=== PATIENT | female | born 1990 ===

== ENCOUNTER 2016-07-12 21:25 | Observation (INO) | payer OTHER ==
[2016-07-12 21:31] VITALS: BP 151/90; PULSE 127; RESP 18; TEMP 97.9; O2SAT 98
[2016-07-12] MEDS ORDERED: Sodium Chloride 0.9% 1,000 ML IV STA (22:08)
--- NOTE | 2016-07-12 22:40 | ED PDOC ---
HPI: Abdomen Time Seen by Provider: 07/12/16 21:30 Chief Complaint (Nursing): Abdominal Pain Chief Complaint (Provider): Abdominal Pain History Per: Patient History/Exam Limitations: no limitations Onset/Duration Of Symptoms: Sudden Onset Severity: Moderate Location Of Pain/Discomfort: RUQ, Epigastric, LUQ Quality Of Discomfort: "Pain" Associated Symptoms: Nausea, Vomiting, Diarrhea Additional Complaint(s): Marifer Esteban is a 25 y/o female presenting to the ER on 07/12/2016 with complaints of abdominal pain in setting of heavy consumption of alcohol prior to arrival. Patient reports she "had a lot to drink" tonight, stating drinks contained multiple mixed alcohols. Reports symptoms including nausea, vomiting, diarrhea, as well as epigastric discomfort. Parents are currently at bedside with patient. Past Medical History Reviewed: Historical Data, Nursing Documentation, Vital Signs Vital Signs: Last Vital Signs Temp 97.9 F 07/12/16 21:26 Pulse 127 H 07/12/16 21:26 Resp 18 07/12/16 21:26 BP 151/90 H 07/12/16 21:26 Pulse Ox 98 07/13/16 05:09 - Medical History PMH: Migraine - Surgical History Surgical History: No Surg Hx - Family History Family History: States: Unknown Family Hx - Social History Current smoker - smoking cessation education provided: No Alcohol: Occasional Drugs: Denies - Home Medications Home Medications: Ambulatory Orders Medication Instructions Recorded Ibuprofen [Motrin Tab] 600 mg PO Q6 #30 tab 02/11/16 - Allergies Allergies/Adverse Reactions: Allergies Allergy/AdvReac Type Severity Reaction Status Date / Time apple Allergy SWELLING Verified 02/10/16 22:17 Review of Systems ROS Statement: Except As Marked, All Systems Reviewed And Found Negative Constitutional: Negative for: Fever Gastrointestinal: Positive for: Nausea, Vomiting, Abdominal Pain, Diarrhea Physical Exam - Reviewed Nursing Documentation Reviewed: Yes Vital Signs Reviewed: Yes - Physical Exam Appears: Positive for: In Acute Distress (pt is writhing in pain). Negative for : Non-toxic (pt's breath smells like alcohol ) Head Exam: Positive for: ATRAUMATIC, NORMOCEPHALIC Skin: Positive for: Normal Color, Warm, Dry Eye Exam: Positive for: Normal appearance, EOMI, PERRL Neck: Positive for: Normal, Painless ROM, Supple Cardiovascular/Chest: Positive for: Regular Rate, Rhythm. Negative for: Murmur Respiratory: Positive for: Normal Breath Sounds. Negative for: Respiratory Distress Gastrointestinal/Abdominal: Positive for: Tenderness ((+) epigastric and RUQ/LUQ ) Extremity: Positive for: Normal ROM. Negative for: Deformity, Swelling Neurologic/Psych: Positive for: Alert, Oriented (x3). Negative for: Motor/ Sensory Deficits - Laboratory Results Result Diagrams: 07/12/16 22:20 07/12/16 22:20 - ECG O2 Sat by Pulse Oximetry: 98 (RA) Pulse Ox Interpretation: Normal - CT Scan/US CT Abd Pelvis PO & IV Contrast Other Rad Studies (CT/US): Interpreted By Me, Read By Radiologist, Radiology Report Reviewed Medical Decision Making Medical Decision Makin:58 Initial Impression: Abdominal pain secondary to alcohol consumption Initial Plan: * CT Abd Pelvis PO & IV Contrast * Alcohol Serum * Beta-HCG * CMP * Lipase * CBC w/ differential * Sodium chloride 1,000 ml IV * Pepcid 20 mg IVP * Zofran 4 mg IV * Urine Cx * Urinalysis * ED Obs Patient will be placed within ED Observation secondary to right lower quadrant pain. Pending a CT Abd Pelvis PO & IV Contrast to rule out Appendicitis. See Observation note for further updates. CT Abd Pelvis PO & IV Contrast Results FINDINGS: Lower thorax: Heart size is normal. Lung bases are clear ABDOMEN: Liver: unremarkable Gallbladder and bile ducts: unremarkable Pancreas: unremarkable Spleen: unremarkable Adrenals: unremarkable Kidneys and ureters: unremarkable Stomach and bowel: Stomach is partially distended. Rotation is normal. Streak limits evaluation of bowel. There is no obstruction. Terminal ileum is unremarkable. Retrocecal appendix is unremarkable.Colon is incompletely distended which limits evaluation. Appendix: See stomach and bowel PELVIS: Bladder: unremarkable Reproductive: Uterus and adnexal structures are unremarkable. ABDOMEN and PELVIS: Intraperitoneal space: There is trace free fluid. There is no free air. Bones/joints: There are no acute osseous abnormalities Soft tissues: unremarkable Vasculature: Vascular structures are unremarkable. Lymph nodes: There is no pathologic adenopathy. IMPRESSION: No acute solid visceral abnormality; no CT findings of appendicitis Additional findings as described above 2:58 Upon provider reevaluation patient is feeling better, is medically stable, and requires no further treatment in the ED at this time. Patient will be discharged home. Counseling was provided and all questions were answered regarding diagnosis. There is agreement to discharge plan. Return if symptoms persist or worsen. Clinical Impression: Alcohol intoxication/Abdominal pain Scribe Attestation: Documented by Allyn Abdullahi and Sylvain Springer, acting as a scribe for Akiko Anaya MD. All medical record entries made by the Scribe were at my direction and personally dictated by me. I have reviewed the chart and agree that the record accurately reflects my personal performance of the history, physical exam, medical decision making, and the department course for this patient. I have also personally directed, reviewed, and agree with the discharge instructions and disposition. ED OBSERVATION Date of observation admission: 07/13/16 Time of observation admission: 21:18 - Observation admission statement Patient is being placed in observation because:: secondary to ED workup - Goals of Observation Goals of observation are:: Labs, re-evaluation, and disposition. Disposition - Clinical Impression Clinical Impression: Abdominal pain, Alcohol intoxication - Patient ED Disposition Is Patient to be Admitted: No Counseled Patient/Family Regarding: Studies Performed, Diagnosis - Disposition Disposition: Routine/Home Disposition Time: 21:55 Condition: STABLE - POA Present On Arrival: None
[2016-07-12 22:43] LABS: BASO % 0.4 % (0.0-2.0); HEMATOCRIT 36.1 % (34.0-47.0); LYMPH # 1.1 K/uL (1.0-4.3); LYMPH % 10.7 % (20.0-40.0); MEAN CELL VOLUME 81.6 fl (81.0-99.0); MEAN CORPUSCULAR HEMOGLOBIN 26.9 pg (27.0-31.0); MEAN PLATELET VOLUME 7.6 fl (7.2-11.7); MONO # 0.3 K/uL (0.0-0.8); MONO % 3.1 % (0.0-10.0); NEUT # 8.8 K/uL (1.8-7.0); NEUT % 85.8 % (50.0-75.0); NRBC % 0.1 % (0.0-0.0); RED CELL DISTRIBUTION WIDTH 13.6 % (11.5-14.5); WHITE BLOOD COUNT 10.2 K/uL (4.8-10.8)
[2016-07-12 22:54] LABS: ALB/GLOB RATIO 1.2 (1.0-2.1); ALCOHOL SERUM 174 mg/dl (0-10); ALKALINE PHOSPHATASE 63 U/L (38-126); ALT/SGPT 22 U/L (9-52); AST/SGOT 41 U/L (14-36); BILIRUBIN,TOTAL 0.5 mg/dl (0.2-1.3); BLOOD UREA NITROGEN 9 mg/dl (7-17); CALCIUM 9.6 mg/dL (8.4-10.2); CARBON DIOXIDE 22 mmol/L (22-30); CHLORIDE 108 mmol/L (98-107); GFR AFRICAN-AMERICAN > 60; GLUCOSE,RANDOM 89 mg/dL (65-105); LIPASE 178 U/L (23-300); SODIUM 147 mmol/l (132-148); TOTAL PROTEIN 8.1 G/DL (6.3-8.2)
[2016-07-12 23:08] LABS: RBC URINE 1 /hpf (0-3); URINE BACTERIA RARE (<OCC); URINE BILIRUBIN NEGATIVE (NEGATIVE); URINE BLOOD NEGATIVE (NEGATIVE); URINE COLOR YELLOW (YELLOW); URINE GLUCOSE (UA) NEG (Normal); URINE KETONE TRACE mg/dL (NEGATIVE); URINE LEUKOCYTE ESTERASE NEG Leu/uL (Negative); URINE PROTEIN NEGATIVE (NEGATIVE); URINE UROBILINOGEN 0.2-1.0 mg/dL (0.2-1.0); WBC URINE 1 /hpf (0-5)
[2016-07-13] MEDS ORDERED: Iohexol 240 (50 ml) PO ONE (00:05)
[2016-07-13] MEDS ORDERED: Sodium Chloride 0.9% 50 ML IV ONE (01:22)
[2016-07-13] MEDS ORDERED: Iohexol 300 100 ML IJ ONE (01:22)
--- NOTE | 2016-07-13 02:17 | CT ---
EXAM: CT Abdomen and Pelvis With Intravenous Contrast CLINICAL HISTORY: 25 years old, female; Pain; Abdominal pain; Localized; Right; Additional info: Abd pain TECHNIQUE: Axial computed tomography images of the abdomen and pelvis with intravenous contrast. This CT exam was performed using one or more of the following dose reduction techniques: automated exposure control, adjustment of the mA and/or kV according to patient size, and/or use of iterative reconstruction technique. Coronal and sagittal reformatted images were created and reviewed. CONTRAST: 90 mL of omnipauque 300 administered intravenously. EXAM DATE/TIME: 07/13/2016 12:05 AM COMPARISON: There are no prior studies for comparison. FINDINGS: Lower thorax: Heart size is normal. Lung bases are clear ABDOMEN: Liver: unremarkable Gallbladder and bile ducts: unremarkable Pancreas: unremarkable Spleen: unremarkable Adrenals: unremarkable Kidneys and ureters: unremarkable Stomach and bowel: Stomach is partially distended. Rotation is normal. Streak limits evaluation of bowel. There is no obstruction. Terminal ileum is unremarkable. Retrocecal appendix is unremarkable.Colon is incompletely distended which limits evaluation. Appendix: See stomach and bowel PELVIS: Bladder: unremarkable Reproductive: Uterus and adnexal structures are unremarkable. ABDOMEN and PELVIS: Intraperitoneal space: There is trace free fluid. There is no free air. Bones/joints: There are no acute osseous abnormalities Soft tissues: unremarkable Vasculature: Vascular structures are unremarkable. Lymph nodes: There is no pathologic adenopathy. IMPRESSION: No acute solid visceral abnormality; no CT findings of appendicitis Additional findings as described above.
== END 2016-07-13 02:56 | disposition home or self-care (01) ==
LOC: H.ER 21:25 → H.EROBSV 22:18
PROVIDERS: ADMIT Emergency Medicine; ATTEND Emergency Medicine
DX: F10.129 Alcohol abuse with intoxication, unspecified (principal); R10.9 Unspecified abdominal pain; Y90.6 Blood alcohol level of 120-199 mg/100 ml

== ENCOUNTER 2017-03-13 18:52 | Emergency (ER) | payer OTHER ==
[2017-03-13 19:10] VITALS: RESP 16; TEMP 98.3; O2SAT 99
[2017-03-13] MEDS ORDERED: Sodium Chloride 0.9% 1,000 ML IV STA (19:17)
--- NOTE | 2017-03-13 19:22 | ED PDOC ---
HPI: Headache Time Seen by Provider: 03/13/17 19:00 Chief Complaint (Nursing): Chest Pain Chief Complaint (Provider): Migraine History Per: Patient History/Exam Limitations: no limitations Onset/Duration Of Symptoms: Days (x2) Current Symptoms Are (Timing): Still Present Associated Symptoms: Photophobia Additional Complaint(s): Marifer Esteban is a 26 year old female with a long history of migraines that presents to the ED with a chief complaint of a migraine that she has been experiencing for the past 2 days. Patient reports that when she last presented to the ED she was given an Rx for Ibuprofen 600 mg, and that she has taken it without any relief, prompting her current ED visit. She states that this is not the worst migraine she has ever experienced, and that she has associated photophobia, mild left ear pain, mild left-sided jaw pain, and mild left-sided neck pain. She additionally reports mild chest pain, which she attributes to the "pressure" from her headache. Patient denies any dizziness, weakness, numbness, tingling, vision changes, shortness of breath, cough, fever, runny nose, or congestion. Headache is same as her usual migraines. PMD: None (Pt does not see a neurologist for her migraines) Past Medical History Reviewed: Historical Data, Nursing Documentation, Vital Signs Vital Signs: Last Vital Signs Temp 98.3 F 03/13/17 19:07 Pulse 78 03/13/17 19:07 Resp 16 03/13/17 19:07 BP 118/63 03/13/17 19:07 Pulse Ox 99 03/13/17 19:07 - Medical History PMH: Migraine - Surgical History Surgical History: No Surg Hx - Family History Family History: States: Unknown Family Hx - Living Arrangements Living Arrangements: With Family - Social History Current smoker - smoking cessation education provided: No Alcohol: None Drugs: Denies - Home Medications Home Medications: Ambulatory Orders Medication Instructions Recorded Ibuprofen [Motrin Tab] 600 mg PO Q6 #30 tab 02/11/16 Ibuprofen [Motrin] 600 mg PO TID 7 Days tab 03/13/17 - Allergies Allergies/Adverse Reactions: Allergies Allergy/AdvReac Type Severity Reaction Status Date / Time apple Allergy SWELLING Verified 02/10/16 22:17 Review of Systems ROS Statement: Except As Marked, All Systems Reviewed And Found Negative Constitutional: Negative for: Weakness Eyes: Positive for: Other (photophobia). Negative for: Vision Change ENT: Positive for: Ear Pain (left ear), Mouth Pain (mild-left sided jaw pain) Cardiovascular: Positive for: Chest Pain (mild) Respiratory: Negative for: Shortness of Breath Musculoskeletal: Positive for: Neck Pain (mild left-sided). Negative for: Shoulder Pain, Arm Pain, Back Pain, Leg Pain Skin: Negative for: Rash Neurological: Positive for: Headache (migraine). Negative for: Weakness, Numbness, Change in Speech, Dizziness Physical Exam - Reviewed Nursing Documentation Reviewed: Yes Vital Signs Reviewed: Yes - Physical Exam Appears: Positive for: Non-toxic, No Acute Distress Head Exam: Positive for: ATRAUMATIC, NORMOCEPHALIC Skin: Positive for: Normal Color, Warm Eye Exam: Positive for: EOMI, Normal appearance, PERRL ENT: Positive for: Normal ENT Inspection. Negative for: Nasal Congestion, Pharyngeal Erythema Neck: Positive for: Normal, Painless ROM, Supple Cardiovascular/Chest: Positive for: Regular Rate, Rhythm, Chest Non Tender. Negative for: Murmur Respiratory: Positive for: Normal Breath Sounds. Negative for: Wheezing Gastrointestinal/Abdominal: Positive for: Normal Exam, Soft. Negative for: Tenderness Back: Positive for: Normal Inspection. Negative for: L CVA Tenderness, R CVA Tenderness Extremity: Positive for: Normal ROM. 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 Negative for: Motor/Sensory Deficits, Aphasia, Facial Droop - Laboratory Results Result Diagrams: 03/13/17 19:33 03/13/17 19:33 Interpretation Of Abn Labs: no acute - ECG ECG: Positive for: Interpreted By Me, Viewed By Me ECG Rhythm: Positive for: Normal QRS, Normal ST Segment, Sinus Rhythm O2 Sat by Pulse Oximetry: 99 (RA) Pulse Ox Interpretation: Normal - Progress ED Course And Treament: 2100: Stable. AAOx3. Pain free. Tolerated PO. Ambulated with no issues. Fu with pcp. Medical Decision Making Medical Decision Making: Impression: Migraine Plan: * EKG * BMP * CBC * Urine Preg * Reglan 10 mg IV * NaCl 1000 mLs at 1000 mLs/hr * Reevaluation Scribe Attestation: Documented by Brittany Grigsby, acting as a scribe for Gerson Abdullahi MD. Provider Scribe Attestation: All medical record entries made by the Scribe were at my direction and personally dictated by me. I have reviewed the chart and agree that the record accurately reflects my personal performance of the history, physical exam, medical decision making, and the department course for this patient. I have also personally directed, reviewed, and agree with the discharge instructions and disposition. Disposition - Clinical Impression Clinical Impression: Headache - Patient ED Disposition Is Patient to be Admitted: No Counseled Patient/Family Regarding: Studies Performed, Diagnosis, Need For Followup, Rx Given - Disposition Referrals: [facility] [Outside] - 03/15/17 Disposition: Routine/Home Disposition Time: 21:01 Condition: STABLE Additional Instructions: Return if not better in 3 days. Prescriptions: Ibuprofen [Motrin] 600 mg PO TID 7 Days tab Instructions: Acute Headache (ED) Forms: [employer] [facility] (Belizean)
[2017-03-13 19:38] LABS: BASO # 0.1 K/uL (0.0-0.2); BASO % 0.9 % (0.0-2.0); EOS % 0.4 % (0.0-4.0); HEMATOCRIT 40.3 % (34.0-47.0); LYMPH # 2.4 K/uL (1.0-4.3); LYMPH % 33.2 % (20.0-40.0); MEAN CELL VOLUME 80.7 fl (81.0-99.0); MEAN CORPUSCULAR HEMOGLOBIN 26.9 pg (27.0-31.0); MEAN CORPUSCULAR HGB CONC 33.3 g/dL (33.0-37.0); MEAN PLATELET VOLUME 7.4 fl (7.2-11.7); MONO # 0.8 K/uL (0.0-0.8); MONO % 11.1 % (0.0-10.0); NEUT # 3.9 K/uL (1.8-7.0); NEUT % 54.4 % (50.0-75.0); NRBC % 0.1 % (0.0-0.0); RED CELL DISTRIBUTION WIDTH 12.9 % (11.5-14.5); WHITE BLOOD COUNT 7.1 K/uL (4.8-10.8)
[2017-03-13 19:47] LABS: BLOOD UREA NITROGEN 9 mg/dl (7-17); CARBON DIOXIDE 25 mmol/L (22-30); CHLORIDE 102 mmol/L (98-107); GFR AFRICAN-AMERICAN > 60; GLUCOSE,RANDOM 81 mg/dL (65-105); POTASSIUM 3.8 MMOL/L (3.6-5.0); SODIUM 138 mmol/l (132-148)
[2017-03-13 21:31] VITALS: BP 115/65; PULSE 88
--- NOTE | 2017-03-14 11:55 | CARD ---
APPROVED REPORT EKG Measurement Heart [id number] <Conclusion> Normal sinus rhythm Normal ECG
== END 2017-03-13 21:20 | disposition home or self-care (01) ==
LOC: H.ER 18:52
DX: R51 Headache (principal)
CPT/HCPCS: 80048; 85025; 93005; 96361; 96374; 99284; J2765; J7040

== ENCOUNTER 2017-07-28 12:57 | Emergency (ER) | payer MEDICAID, OTHER ==
[2017-07-28 13:33] VITALS: PULSE 84
[2017-07-28] MEDS ORDERED: Sodium Chloride 0.9% 1,000 ML IV STA (13:39)
--- NOTE | 2017-07-28 13:46 | ED PDOC ---
HPI: Headache Time Seen by Provider: 07/28/17 13:27 Chief Complaint (Nursing): Headache Chief Complaint (Provider): Headache History Per: Patient History/Exam Limitations: no limitations Onset/Duration Of Symptoms: Days (x2) Current Symptoms Are (Timing): Still Present Additional Complaint(s): 26 y/o old female with a pmhx of migraines presents to the ED complaining of headache x2 days. Patient states her symptoms began yesterday and she took Fioricet last night with no relief. Patient states current headache is typical of prior migraines and she states this is not the worst headache of her life. No fever or chills. Patient denies any vomiting but has had nausea. PMD: None Neurologist: Dr. Huitron Past Medical History Reviewed: Historical Data, Nursing Documentation, Vital Signs Vital Signs: Last Vital Signs Temp 98.7 F 07/28/17 13:30 Pulse 84 07/28/17 13:30 Resp 20 07/28/17 13:30 BP 118/76 07/28/17 13:30 Pulse Ox 99 07/28/17 13:30 - Medical History PMH: Migraine - Surgical History Other surgeries: Right knee surgery - Family History Family History: States: No Known Family Hx - Living Arrangements Living Arrangements: With Family - Social History Current smoker - smoking cessation education provided: No Alcohol: Social Drugs: Denies - Home Medications Home Medications: Ambulatory Orders Medication Instructions Recorded Ibuprofen [Motrin Tab] 600 mg PO Q6 #30 tab 02/11/16 Ibuprofen [Motrin] 600 mg PO TID 7 Days tab 03/13/17 Metoclopramide [Reglan] 10 mg PO Q6 PRN #20 tab 07/28/17 Naproxen [Naprosyn] 500 mg PO BID #20 tab 07/28/17 - Allergies Allergies/Adverse Reactions: Allergies Allergy/AdvReac Type Severity Reaction Status Date / Time apple Allergy SWELLING Verified 02/10/16 22:17 Review of Systems ROS Statement: Except As Marked, All Systems Reviewed And Found Negative Eyes: Negative for: Vision Change Gastrointestinal: Positive for: Nausea. Negative for: Vomiting Neurological: Positive for: Headache. Negative for: Dizziness Physical Exam - Reviewed Nursing Documentation Reviewed: Yes Vital Signs Reviewed: Yes - Physical Exam Appears: Positive for: Well, Non-toxic, No Acute Distress Head Exam: Positive for: ATRAUMATIC, NORMAL INSPECTION, NORMOCEPHALIC Skin: Positive for: Normal Color. Negative for: Rash Eye Exam: Positive for: Normal appearance Neck: Positive for: Normal. 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 Negative for: Motor/Sensory Deficits, Aphasia, Facial Droop - Laboratory Results Urine POC: Negative - ECG O2 Sat by Pulse Oximetry: 99 (RA) Pulse Ox Interpretation: Normal Medical Decision Making Medical Decision Makin:39 Initial Impression: 26 y/o female with migraine Plan: --Urine --Sodium Chloride 0.9% 1,000 mls/hr --Reglan 10mg IV --Toradol 30mg IV --Tylenol 975mg PO --Reevaluation Patient reports improvement of pain after meds given. Patient was instructed to follow up with her neurologist, Dr. Huitron, for further evaluation. Prescriptions for Reglan and Naprosyn provided Scribe Attestation: Documented by Clement Liriano, acting as a scribe for Nabila Pearson PA-C. Provider Scribe Attestation: All medical record entries made by the Scribe were at my direction and personally dictated by me. I have reviewed the chart and agree that the record accurately reflects my personal performance of the history, physical exam, medical decision making, and the department course for this patient. I have also personally directed, reviewed, and agree with the discharge instructions and disposition. Disposition - Clinical Impression Clinical Impression: Migraine - Patient ED Disposition Is Patient to be Admitted: No Counseled Patient/Family Regarding: Diagnosis, Need For Followup, Rx Given - Disposition Referrals: Omer Huitron MD [Staff Provider] - Disposition: Routine/Home Disposition Time: 15:07 Condition: IMPROVED Additional Instructions: Take prescription meds as directed as needed for headache pain. Drink plenty of fluids. Follow up as soon as possible with neurologist. Prescriptions: Metoclopramide [Reglan] 10 mg PO Q6 PRN #20 tab PRN Reason: Headache Naproxen [Naprosyn] 500 mg PO BID #20 tab Instructions: Migraine Headache (DC) Forms: [facility] (Georgian), [facility] ED School/Work Excuse
[2017-07-28 15:47] VITALS: BP 118/77; RESP 18; TEMP 98.1; O2SAT 100
== END 2017-07-28 15:47 | disposition home or self-care (01) ==
LOC: H.ER 12:57
DX: G43.909 Migraine, unspecified, not intractable, without status migrainosus (principal)
CPT/HCPCS: 81025; 96374; 96375; 99285; J1885; J2765; J7040

== ENCOUNTER 2017-10-17 12:48 | Emergency (ER) | payer OTHER ==
[2017-10-17 13:09] VITALS: PULSE 86; O2SAT 99
[2017-10-17] MEDS ORDERED: Sodium Chloride 0.9% 1,000 ML IV STA (13:14)
--- NOTE | 2017-10-17 13:34 | ED PDOC ---
HPI: Abdomen Time Seen by Provider: 10/17/17 13:13 Chief Complaint (Nursing): Abdominal Pain Chief Complaint (Provider): NAusea, Vomiting and Abdominal Discomfort History Per: Patient History/Exam Limitations: no limitations Onset/Duration Of Symptoms: Days Outside of [place] travel?: No Current Symptoms Are (Timing): Still Present Quality Of Discomfort: "Pain" Associated Symptoms: Nausea, Vomiting Additional Complaint(s): 26 year old female presents to the emergency department complaining of abdominal discomfort, nausea and vomiting. Patient states that she has a hangover and admits to drinking too much last night. Denies melena, hematemesis , fever, trauma and other injury. FAMILY PROVIDER,NO Abnormal Vaginal Bleeding: No Past Medical History Reviewed: Historical Data, Nursing Documentation, Vital Signs Vital Signs: Last Vital Signs Temp 97 F L 10/17/17 13:06 Pulse 86 10/17/17 13:06 Resp 18 10/17/17 13:06 BP 114/75 10/17/17 13:06 Pulse Ox 99 10/17/17 14:27 - Medical History PMH: Migraine - Surgical History Other surgeries: Knee scope; Oral cyst removal as a child - Family History Family History: States: Unknown Family Hx - Home Medications Home Medications: Ambulatory Orders Medication Instructions Recorded Ibuprofen [Motrin Tab] 600 mg PO Q6 #30 tab 02/11/16 Ibuprofen [Motrin] 600 mg PO TID 7 Days tab 03/13/17 Metoclopramide [Reglan] 10 mg PO Q6 PRN #20 tab 07/28/17 Naproxen [Naprosyn] 500 mg PO BID #20 tab 07/28/17 - Allergies Allergies/Adverse Reactions: Allergies Allergy/AdvReac Type Severity Reaction Status Date / Time apple Allergy SWELLING Verified 10/17/17 13:08 Review of Systems ROS Statement: Except As Marked, All Systems Reviewed And Found Negative Constitutional: Negative for: Fever Gastrointestinal: Positive for: Vomiting. Negative for: Abdominal Pain ((+) abdominal discomfort), Melena, Hematemesis Neurological: Positive for: Dizziness Physical Exam - Reviewed Nursing Documentation Reviewed: Yes Vital Signs Reviewed: Yes - Physical Exam Appears: Positive for: Well, Non-toxic, No Acute Distress Head Exam: Positive for: ATRAUMATIC, NORMAL INSPECTION, NORMOCEPHALIC Skin: Positive for: Normal Color, Warm, Dry. Negative for: Rash Eye Exam: Positive for: Normal appearance, EOMI, PERRL. Negative for: Nystagmus ENT: Positive for: Normal ENT Inspection. Negative for: Nasal Congestion, Tonsillar Exudate, Tonsillar Swelling Neck: Positive for: Normal, Painless ROM, Supple Cardiovascular/Chest: Positive for: Regular Rate, Rhythm, Chest Non Tender. Negative for: Tachycardia Respiratory: Positive for: Normal Breath Sounds. Negative for: Rales, Rhonchi, Wheezing, Respiratory Distress Gastrointestinal/Abdominal: Positive for: Bowel Sounds, Soft, Tenderness ( central abdominal tenderness), Other (Dry heaving in ER). Negative for: Mass, Guarding, Rebound Back: Positive for: Normal Inspection. Negative for: L CVA Tenderness, R CVA Tenderness Extremity: Positive for: Normal ROM. Negative for: Tenderness, Deformity, Swelling Neurologic/Psych: Positive for: Alert, Oriented, Gait - Laboratory Results Result Diagrams: 10/17/17 13:13 Urine POC: Negative Urine dip results: Negative for: Leukocyte Esterase - ECG O2 Sat by Pulse Oximetry: 99 (RA) Pulse Ox Interpretation: Normal Medical Decision Making Medical Decision Makin Initial Impression 26 year old female presenting with dizziness, vomiting and abdominal pain Initial Plan: * Alcohol Serum * CMP * Drug Screen * Lipase * Upreg * Udip * CBC * NS 1000 mls IV 1000 mls/hr * Toradol 30 mg IV * Zofran 4 mg IVP * Reevaluation Blood work r/o alcohol gastritis r/o pancreatitis will be given body fluid and antiemetic ------ Documented by Katherine Blevins acting as a scribe for Odilon Jackson III, DO. All medical record entries made by the Scribe were at my direction and personally dictated by me. I have reviewed the chart and agree that the record accurately reflects my personal performance of the history, physical exam, medical decision making, and the department course for this patient. I have also personally directed, reviewed, and agree with the discharge instructions and disposition. Disposition - Clinical Impression Clinical Impression: Alcohol abuse, Abdominal discomfort - Patient ED Disposition Is Patient to be Admitted: Transfer of Care - Disposition Disposition: Transfer of Care Disposition Time: 15:06 Condition: STABLE Forms: [facility] (Yoruba) Patient Signed Over To: Gerson Abdullahi Handoff Comments: pending remaining labs and reeval /dispo
[2017-10-17 14:16] LABS: BARBITURATES, UR NEGATIVE (NEGATIVE)
[2017-10-17 14:32] LABS: BENZODIAZEPINES, UR NEGATIVE (NEGATIVE); OPIATES, UR NEGATIVE (NEGATIVE); PHENCYCLIDINE, UR NEGATIVE (NEGATIVE)
[2017-10-17 14:52] LABS: BASO % 0.4 % (0.0-2.0); EOS % 0.1 % (0.0-4.0); HEMOGLOBIN 12.5 g/dL (12.0-16.0); LYMPH # 1.4 K/uL (1.0-4.3); LYMPH % 18.1 % (20.0-40.0); MEAN CELL VOLUME 81.5 fl (81.0-99.0); MEAN CORPUSCULAR HEMOGLOBIN 28.4 pg (27.0-31.0); MEAN CORPUSCULAR HGB CONC 34.8 g/dL (33.0-37.0); MEAN PLATELET VOLUME 7.6 fl (7.2-11.7); MONO # 0.5 K/uL (0.0-0.8); MONO % 5.9 % (0.0-10.0); NEUT # 6.1 K/uL (1.8-7.0); NEUT % 75.5 % (50.0-75.0); NRBC % 0.2 % (0.0-0.0); RBC 4.41 Mil/uL (3.80-5.20); RED CELL DISTRIBUTION WIDTH 12.7 % (11.5-14.5)
[2017-10-17 15:07] LABS: ALB/GLOB RATIO 1.2 (1.0-2.1); ALBUMIN 4.4 g/dL (3.5-5.0); ALT/SGPT 34 U/L (9-52); AST/SGOT 34 U/L (14-36); BLOOD UREA NITROGEN 9 mg/dl (7-17); CALCIUM 9.4 mg/dL (8.4-10.2); GFR AFRICAN-AMERICAN > 60; GFR NON-AFRICAN AMERICAN > 60; LIPASE 48 U/L (23-300)
--- NOTE | 2017-10-17 15:23 | ED PDOC ---
- Laboratory Results Result Diagrams: 10/17/17 13:13 10/17/17 13:13 Interpretation Of Abn Labs: no acute Urine POC: Negative - ECG O2 Sat by Pulse Oximetry: 99 (RA) Pulse Ox Interpretation: Normal - Progress ED Course And Treament: 1620: Stable. Still mild tender periumbilical. Advised option about evaluation of appendix and pancreas via CT. Alternatively she can see how she feels and return if pain worsens, nausea, vomit, not feeling right. Pt. prefers to get ct done for evaluation. 2206: Stable. AAOx3. Pain free. Tolerated PO. Mild thickening colon. Will rx antibiotics and dc. Medical Decision Making Medical Decision Making: Patient signed out to provider at [address] Jackson pending chemistry and possible need for CT scan. Documented by Katherine Blevins acting as a scribe for Gerson Abdullahi MD. All medical record entries made by the Scribe were at my direction and personally dictated by me. I have reviewed the chart and agree that the record accurately reflects my personal performance of the history, physical exam, medical decision making, and the department course for this patient. I have also personally directed, reviewed, and agree with the discharge instructions and disposition. Disposition - Clinical Impression Clinical Impression: Alcohol abuse, Colitis - POA Present On Arrival: None - Disposition Referrals: [facility] [Outside] - 10/18/17 Kin Michel MD [Medical Doctor] - 10/18/17 Disposition: Routine/Home Disposition Time: 22:07 Condition: STABLE Additional Instructions: Return if not better in 3 days. Prescriptions: Ciprofloxacin HCl [Cipro] 500 mg PO BID 7 Days tab Metronidazole [Flagyl] 500 mg PO TID 7 Days tablet Instructions: Effects of Alcohol on Your Health, Acute Abdomen (Belly Pain) Forms: X[employer]ified (Kiswahili), [facility] ED School/Work Excuse
[2017-10-17] MEDS ORDERED: Iohexol 240 (50 ml) PO ONE (16:27)
[2017-10-17] MEDS ORDERED: Iohexol 240 (50 ml) ONE (16:37)
[2017-10-17] MEDS ORDERED: Sodium Chloride 0.9% 50 ML IV ONE (20:38)
[2017-10-17] MEDS ORDERED: Iohexol 300 50 ML ONE (20:38)
[2017-10-17 22:21] VITALS: BP 118/72; RESP 16; TEMP 98.3
--- NOTE | 2017-10-18 11:24 | CT ---
Date of service: 10/17/2017 PROCEDURE: CT Abdomen and Pelvis with contrast HISTORY: Abdominal pain. Negative test (concurrent with this examination). COMPARISON: 07/13/2016 TECHNIQUE: Contrast dose: 95 cc Omnipaque 300 Radiation dose: Total exam DLP = 332.94 mGy-cm. This CT exam was performed using one or more of the following dose reduction techniques: Automated exposure control, adjustment of the mA and/or kV according to patient size, and/or use of iterative reconstruction technique. FINDINGS: LOWER THORAX: Unremarkable. LIVER: Unremarkable. No gross lesion or ductal dilatation. GALLBLADDER AND BILE DUCTS: Unremarkable. PANCREAS: Unremarkable. No gross lesion or ductal dilatation. SPLEEN: Unremarkable. ADRENALS: Unremarkable. No mass. KIDNEYS AND URETERS: Unremarkable. No hydronephrosis. No solid mass. VASCULATURE: Unremarkable. No aortic aneurysm. BOWEL: Unremarkable. No obstruction. No gross mural thickening. APPENDIX: Normal appendix. PERITONEUM: Unremarkable. No free fluid. No free air. LYMPH NODES: Unremarkable. No enlarged lymph nodes. BLADDER: Unremarkable. REPRODUCTIVE: Unremarkable. BONES: No acute fracture. OTHER FINDINGS: None. IMPRESSION: No significant or acute findings to account for/ related to the clinical presentation. Concordant results (preliminary interpretation) provided by [facility]. Procedure Completed: 20:50 Preliminary ([facility]) Report: Dictated and Authenticated: 22:01. Final Interpretation: 11:22. October 18, 2017.
== END 2017-10-17 22:28 | disposition home or self-care (01) ==
LOC: H.ER 12:48
DX: F10.10 Alcohol abuse, uncomplicated (principal); Y90.0 Blood alcohol level of less than 20 mg/100 ml; R10.9 Unspecified abdominal pain
CPT/HCPCS: 74177; 80053; 80320; 80324; 80345; 80346; 80349; 80353; 80358; 80361; 81025; 83690; 83992; 85025; 96361; 96374; 96375; 99284; J1885; J2405; J7030; Q9966; Q9967